=== PATIENT | female | born 1965 | race African-American/Black ===

== ENCOUNTER → 2016-06-07 | Outpatient (CLI) | payer OTHER ==
[~2016-06-07] MED LIST: ACETAMINOPHEN PO; ASPIRIN ENTERI325 M1 PO; BACTRIM DS TABL1 TA1 PO; FAMOTIDINE PO; FLAGYL250 M1 PO; FLEXERIL PO; FLEXERIL10 M1 PO; IBUPROFEN800 MG PO; INDOMETHACIN50 MG PO; KEFLEX500 MG PO; KETOPROFEN PO; LEVO-T150 MCG PO; LEVOTH PO; LEVOTHROID75 MCG PO; LEVOXYL125 MC1 PO; LEVOXYL50 MCG PO; LIPITOR20 MG PO; NO MEDICATIONS; SYNTHROID; SYNTHROID PO; SYNTHROID0.05 MG PO; ULTRAM PO; VICODIN 5/1 TAB 5/50 PO
--- NOTE | ~2016-06-07 | MR60 ---
[facility] A Service of [facility] RADIOLOGY TEXT RESULTS PATIENT: KRAIG DUGAN LOCATION: [facility] : 63 UNIT #: [id number] AGE: [address]: Robert Lord DPM SEX: F ORDER DR: [id number] [facility] [address] [place], [place] [address] [id number] O MR#: [id number] Acc #: [id number] NAME: KRAIG DUGAN : 1965 SEX: F STUDY DATE/TIME: 06/07/2016 16:55 UNIT: [facility] ROOM: STUDY DESCRIPTION: MR Foot Wo Contrast Lt Attending Physician: Dean Lord Jr., D.P.M. Referring Physician: Dean Lord Jr., D.P.M. Ordering Physician: Dean Lord Jr., D.P.M. Primary Care Physician: Francine Victor M.D. MRI CENTER REPORT This report is preliminary unless electronic signature is present. EXAM MRI of the left foot without contrast. HISTORY 50-year-old female with left lateral ankle pain since foot surgery in September 2015. Patient states burning pain. Clinical concern for peroneal tendinitis. COMPARISON Left foot films, 02/08/2012. TECHNIQUE Multiplanar, multiecho imaging was performed of the left ankle utilizing a high field magnet and dedicated protocol. FINDINGS Susceptibility artifact is noted within the calcaneus from a large calcaneal screw. No focal marrow edema. Ankle and subtalar joints unremarkable. Joint fluid within normal limits. There is a small longitudinal split tear of the retromalleolar peroneus brevis tendon estimated no more than 1 cm to 1.6 cm in length. Mild tendinopathy. Peroneus longus tendon appears intact. Remainder of the ankle tendons appear normal. The anterior talofibular ligament is poorly defined and may represent the sequela of previous lateral ankle sprain. The calcaneofibular ligament appears intact. The anterior-inferior tibiofibular ligament and posterior malleolar ligaments appear intact. The plantar fascia and tarsal tunnel appear normal. There is nonspecific edema within the sinus tarsi. Intrinsic foot musculature unremarkable. IMPRESSION 1. Short-segment longitudinal split tear of the peroneus brevis tendon involving the retromalleolar tendon over a 1-1.5 cm length. No STS. [facility] A Service of [facility] RADIOLOGY TEXT RESULTS PATIENT: KRAIG DUGAN LOCATION: [facility] : 63 UNIT #: [id number] AGE: [address]: Robert Lord DPPeter SEX: F ORDER DR: active tendinopathy. 2. Nonspecific edema within the sinus tarsi. 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 Correlate with clinical presentation. 3. Postsurgical changes from apparent ORIF of the calcaneus fracture appears healed. Correlate with surgical history. 4. 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 Dictated by... Philippe Thurman M.D. THIS IS AN ELECTRONICALLY VERIFIED REPORT Philippe Thurman M.D. at 06/08/2016 3:58 PM Fran TD: 06/08/2016 09:22 JOB #: [id number] MRI CENTER REPORT COPY
== END | disposition home or self-care (01) ==
LOC: CMRI 16:27
DX: M76.72 Peroneal tendinitis, left leg (principal); S96.812A Strain of other specified muscles and tendons at ankle and foot level, left foot, initial encounter; R60.0 Localized edema
CPT/HCPCS: 73718

== ENCOUNTER → 2016-06-22 | Outpatient (CLI) | payer OTHER ==
[2016-06-22 16:37] LABS: HEMATOCRIT 35.6 % (35.0-45.0); HEMOGLOBIN 11.7 gm/dL (12.0-16.0); MEAN CELL VOLUME 89.7 FL (83-96); MEAN CORPUSCULAR HEMOGLOBIN 29.4 PG (28-34); MEAN CORPUSCULAR HGB CONC 32.7 g/dL (30-36); MEAN PLATELET VOLUME 8.1 FL (6.5-11.5); RED BLOOD COUNT 3.97 X10e (3.90-5.30); RED CELL DISTRIBUTION WIDTH 14.1 % (11.0-15.5); WHITE BLOOD COUNT 6.2 X10e3 (4.0-10.5)
[2016-06-22 17:08] LABS: BLOOD UREA NITROGEN 20 mg/dL (9-23); BUN/CREATININE RATIO 22.22; CALCIUM SERUM 8.8 mg/dL (8.4-10.2); CARBON DIOXIDE 28 mmol/L (22-31); CHLORIDE 112 mmol/L (100-111); CREATININE SERUM 0.9 mg/dL (0.6-1.4); GLOM FILT RATE Estimated ABOVE60 mL/min (>60); GLUCOSE FASTING 86 mg/dL (70-110); SODIUM 141 mmol/L (135-145)
== END | disposition home or self-care (01) ==
LOC: CLAB 16:21
PROVIDERS: Podiatrist
DX: M66.862 Spontaneous rupture of other tendons, left lower leg (principal)
CPT/HCPCS: 36415; 80048; 85027

== ENCOUNTER 2016-10-02 13:59 | Emergency (ER) | payer OTHER ==
--- NOTE | ~2016-10-02 | CR63 ---
[facility] A Service of [facility] RADIOLOGY TEXT RESULTS PATIENT: KRAIG DUGAN LOCATION: [facility] : 63 UNIT #: [id number] AGE: [address]: Elieser Holcomb MD SEX: F ORDER DR: [id number] [facility] [address] [place], [place] [address] [id number] E MR#: [id number] Acc #: [id number] NAME: KRAIG DUGAN. : 1965 SEX: F STUDY DATE/TIME: 10/02/2016 17:28 UNIT: [facility] ROOM: STUDY DESCRIPTION: CR Chest 2 View Attending Physician: Elieser Holcomb M.D. Ordering Physician: Elieser Holcomb M.D. Primary Care Physician: Francine Victor M.D. MEDICAL IMAGING REPORT This report is preliminary unless electronic signature is present EXAM Two-view chest, 10/02/2016 HISTORY 51-year-old female with shortness of air for 3 days. COMPARISON Chest, 09/07/2015 FINDINGS Two views of the chest demonstrate clear lungs. No pleural effusion or pneumothorax. Heart size and mediastinum are normal. Pulmonary vasculature normal. IMPRESSION No acute cardiopulmonary findings. Dictated by... Dom Spain M.D. THIS IS AN ELECTRONICALLY VERIFIED REPORT Dom Spain M.D. at 10/04/2016 1:32 PM Mario TD: 10/03/2016 08:19 JOB #: [id number] MEDICAL IMAGING REPORT Page 1 of 1 COPY
== END 2016-10-02 19:10 | disposition home or self-care (01) ==
LOC: CED 13:59
DX: J45.901 Unspecified asthma with (acute) exacerbation (principal); I10 Essential (primary) hypertension; Z98.890 Other specified postprocedural states; F17.200 Nicotine dependence, unspecified, uncomplicated; E03.9 Hypothyroidism, unspecified
CPT/HCPCS: 71020; 94640; 99284

== ENCOUNTER → 2016-10-19 | Outpatient (CLI) | payer OTHER ==
--- NOTE | ~2016-10-19 | PFT ---
[id number] [facility] [address] [place], [place] [address] [id number] O MR#: [id number] NAME: KRAIG DUGAN ROOM: SEX: F STUDY DATE/TIME: 10/19/2016 : 1965 AGE: 51 STUDY DESCRIPTION: Attending Physician: Francine Victor M.D. Referring Physician: Francine Victor M.D. Primary Care Physician: Francine Victor M.D. PULMONARY DIAGNOSTIC REPORT EXAM Pulmonary Function Test DESCRIPTION Spirometry is normal. There is no significant response to bronchodilators. Flow volume loop shows variable effort which could decrease reliability of results. Lung volumes suggest a restrictive defect with a total lung capacity of 71%. Diffusion capacity is severely reduced. Changes are suggestive of an intrinsic restrictive defect such as pulmonary fibrosis. Dictated by... Lizandro Goncalves M.D. ARABELLA/lidia TD: 10/25/2016 07:30 JOB #: [id number] PULMONARY DIAGNOSTIC REPORT Page 1 of 1
== END | disposition home or self-care (01) ==
LOC: CRC 12:30
DX: J45.901 Unspecified asthma with (acute) exacerbation (principal)
CPT/HCPCS: 94060; 94726; 94729

== ENCOUNTER → 2016-10-19 | Outpatient (CLI) | payer OTHER ==
--- NOTE | ~2016-10-19 | MY29 ---
[facility] A Service of [facility] RADIOLOGY TEXT RESULTS PATIENT: KRAIG DUGAN LOCATION: [facility] : 63 UNIT #: [id number] AGE: [address]: TANJA LUCERO MD SEX: F ORDER DR: [id number] [address] [address] [id number] O MR#: [id number] Acc #: [id number] NAME: KRAIG DUGAN : 1965 SEX: F STUDY DATE/TIME: 10/19/2016 13:10 UNIT: [facility] ROOM: STUDY DESCRIPTION: MY [facility] SCREENING W/ CAD BILAT Attending Physician: Tanja Lucero M.D. Referring Physician: Tanja Lucero M.D. Ordering Physician: Tanja Lucero M.D. Primary Care Physician: Tanja Lucero M.D. MEDICAL IMAGING REPORT This report is preliminary unless electronic signature is present EXAM Bilateral digital screening mammogram with CAD, 10/19/2016. INDICATION 51-year-old female for routine screening. No reported problems and no personal or family history of breast cancer. No surgeries. TECHNIQUE CC and MLO views of the breasts were obtained and reviewed with an FDA-approved CAD device. COMPARISON 10/06/2015 FINDINGS Breast parenchyma is composed of heterogeneously dense breast tissue. The pattern is unchanged. There is no new dominant nodule, mass, or suspicious cluster of microcalcifications. IMPRESSION Negative dense mammogram. One-year followup recommended. Patients over the age of 40 are entered into a reminder system with target due date for the next mammogram. A result letter will also be sent to the patient. BIRADS: 1 Negative Dictated by... Ernesto Kirkland M.D. [facility] A Service of [facility] RADIOLOGY TEXT RESULTS PATIENT: KRAIG DUGAN LOCATION: [facility] : 63 UNIT #: [id number] AGE: [address]: TANJA LUCERO MD SEX: F ORDER DR: THIS IS AN ELECTRONICALLY VERIFIED REPORT Ernesto Kirkland M.D. at 10/19/2016 4:03 PM Hugo TD: 10/19/2016 15:59 JOB #: [id number] MEDICAL IMAGING REPORT Page 1 of 1 COPY
== END | disposition home or self-care (01) ==
LOC: CWCC 12:25
DX: Z12.31 Encounter for screening mammogram for malignant neoplasm of breast (principal)
CPT/HCPCS: G0202

== ENCOUNTER 2016-12-04 17:30 | Emergency (ER) | payer OTHER ==
[~2016-12-04] VITALS: Ht 172.7 cm; Wt 85.7 kg
--- NOTE | ~2016-12-04 | CT4 ---
[facility] A Service of [facility] RADIOLOGY TEXT RESULTS PATIENT: KRAIG DUGAN LOCATION: [facility] : 63 UNIT #: [id number] AGE: [address]: Elieser Jimenez MD SEX: F ORDER DR: [id number] [facility] [address] [place], [place] [address] [id number] E MR#: [id number] Acc #: [id number] NAME: KRAIG DUGAN. : 1965 SEX: F STUDY DATE/TIME: 12/04/2016 21:43 UNIT: [facility] ROOM: STUDY DESCRIPTION: CT Abd and Pelv Wo Cont Attending Physician: Prasanth Jimenez M.D. Ordering Physician: Ed Deandre Jackson M.D. Primary Care Physician: Francine Victor M.D. MEDICAL IMAGING REPORT This report is preliminary unless electronic signature is present EXAM CT abdomen and pelvis without contrast HISTORY Left-sided flank pain. Back and abdominal pain times 1 week. History of kidney stones. COMPARISON CT abdomen and pelvis 05/25/2016 FINDINGS Axial images performed through the abdomen and pelvis without contrast. Multiplanar reconstructed images reviewed. This CT exam was performed with one or more of the following radiation dose reduction techniques: Automatic exposure control, adjustment of mA and/or kV according to patient size, and iterative reconstruction. ABDOMEN: Lung bases unremarkable except for basilar fibrosis. Liver, spleen, gallbladder, pancreas and adrenal glands unremarkable. Small, nonobstructing left renal stone. Visualized GI tract normal. Retroperitoneum unremarkable. PELVIS: Bladder unremarkable. Uterus surgically absent. Osseous structures and soft tissues appear normal. IMPRESSION No acute intraabdominal or intrapelvic pathology identified. Small, nonobstructing left renal stone. Dictated by.Bernard Thurman M.D. [facility] A Service of [facility] RADIOLOGY TEXT RESULTS PATIENT: KRAIG DUGAN LOCATION: [facility] : 63 UNIT #: [id number] AGE: [address]: Elieser Jimenez MD SEX: F ORDER DR: THIS IS AN ELECTRONICALLY VERIFIED REPORT Philippe Thurman M.D. at 12/05/2016 2:34 PM NOLAN/patrizia TD: 12/05/2016 08:12 JOB #: [id number] MEDICAL IMAGING REPORT Page 1 of 1 COPY
[2016-12-04 18:39] LABS: BASOPHIL# 0.1 X10e3 (0-0.3); BASOPHIL% 0.8 % (0-2.5); EOSINOPHIL# 0.1 X10e3 (0-0.7); EOSINOPHIL% 1.7 % (0.0-7.0); HEMOGLOBIN 13.8 gm/dL (12.0-16.0); LYMPHOCYTE# 3.4 X10e3 (1.0-3.5); LYMPHOCYTE% 41.6 % (17.0-45.0); MEAN CELL VOLUME 88.6 FL (83-96); MEAN CORPUSCULAR HEMOGLOBIN 29.1 PG (28-34); MEAN CORPUSCULAR HGB CONC 32.8 g/dL (30-36); MEAN PLATELET VOLUME 8.2 FL (6.5-11.5); MONOCYTE# 0.5 X10e3 (0-1.0); MONOCYTE% 6.6 % (3.0-12.0); NEUTROPHIL% 49.3 % (40-75); PLATELET COUNT 324 X10e3 (140-420); RED BLOOD COUNT 4.74 X10e (3.90-5.30); RED CELL DISTRIBUTION WIDTH 14.1 % (11.0-15.5); WHITE BLOOD COUNT 8.2 X10e3 (4.0-10.5)
[2016-12-04 18:45] LABS: DIFF IND NO
[2016-12-04 19:07] LABS: ALBUMIN SERUM 4.5 g/dL (3.5-5.0); ALKALINE PHOSPHATASE 96 U/L (32-92); ALT (SGPT) 16 U/L (10-40); AST (SGOT) 21 U/L (10-42); BILIRUBIN, DIRECT <0.1 mg/dL (0.0-0.2); BILIRUBIN,INDIRECT 0.3 mg/dL (0.0-0.9); BILIRUBIN,TOTAL 0.4 mg/dL (0.2-2.0); BLOOD UREA NITROGEN 17 mg/dL (9-23); BUN/CREATININE RATIO 18.88; CALCIUM SERUM 9.8 mg/dL (8.4-10.2); CARBON DIOXIDE 28 mmol/L (22-31); CHLORIDE 103 mmol/L (100-111); CREATININE SERUM 0.9 mg/dL (0.6-1.4); GLOM FILT RATE Estimated 85.3 mL/min (>60); GLUCOSE FASTING 98 mg/dL (70-110); LIPASE 31 U/L (22-51); POTASSIUM 3.8 mmol/L (3.5-5.1); PROTEIN TOTAL SERUM 8.3 g/dL (6.0-8.3); SODIUM 139 mmol/L (135-145)
[2016-12-04 21:19] LABS: URINE SOURCE CLEAN CATCH
[2016-12-04 21:34] LABS: URINE APPEARANCE CLEAR; URINE BILIRUBIN NEG (NEG); URINE BLOOD TRACE (NEG); URINE COLOR YELLOW; URINE GLUCOSE NEG (NEG); URINE KETONE NEG (NEG); URINE LEUKOCYTE ESTERASE NEG (NEG); URINE NITRATE NEG (NEG); URINE PROTEIN NEG (NEG); URINE SPECIFIC GRAVITY 1.012 (1.003-1.035)
[2016-12-04 21:37] LABS: URBCS1 AUWI 0-2 /[HPF] (0-2); URINE BACTERIA AUWI NEG (NEGATIVE); URINE SQUAMOUS EPITHELIAL CELL NONE SEEN /[HPF]; UWBCS1 AUWI 0-2 (0-5)
[2016-12-04 21:41] LABS: CULTURE INDICATED? NO
== END 2016-12-04 22:27 | disposition home or self-care (01) ==
LOC: CED 17:30
DX: R10.9 Unspecified abdominal pain (principal); Z87.442 Personal history of urinary calculi; J44.9 Chronic obstructive pulmonary disease, unspecified; Z90.710 Acquired absence of both cervix and uterus; Z87.891 Personal history of nicotine dependence; Z88.5 Allergy status to narcotic agent
CPT/HCPCS: 36415; 74176; 80048; 80076; 81003; 83690; 85025; 96372; 99284; J1885